=== PATIENT | male | born 1990 | race American Indian/Alaskan Native ===

== ENCOUNTER 2016-10-07 10:50 | Emergency (ER) | payer OTHER ==
--- NOTE | 2016-10-07 14:58 | Emergency Department Report ---
ED Eye Problem HPI - General Chief complaint: Eye Problems Stated complaint: RT EYE INFECTED/SWOLLEN Time Seen by Provider: 10/07/16 14:52 Source: patient Mode of arrival: Ambulatory Limitations: No Limitations - History of Present Illness chief complaint: eye pain - Related Data Allergies Allergy/AdvReac Type Severity Reaction Status Date / Time No Known Allergies Allergy Unverified 11/25/14 18:26 ED Review of Systems ROS: Stated complaint: RT EYE INFECTED/SWOLLEN Other details as noted in HPI ED Past Medical Hx - Past Medical History Previous Medical History?: No - Social History Smoking Status: Current Every Day Smoker ED Physical Exam - General Limitations: No Limitations ED Course Vital Signs 10/07/16 11:48 Temperature 98.3 F Pulse Rate 93 H Respiratory 18 Rate Blood Pressure 126/77 Blood Pressure 126/77 [Left] O2 Sat by Pulse 96 Oximetry Critical care attestation.: If time is entered above; I have spent that time in minutes in the direct care of this critically ill patient, excluding procedure time. ED Disposition Condition: Stable Referrals: PRIMARY CARE [Primary Care Provider] - 3-5 Days
[2016-10-07] MEDS ORDERED: BOOSTRIX IM ONE (15:12)
[2016-10-07] MEDS ORDERED: MORPHINE IV ONE (15:17)
[2016-10-07] MEDS ORDERED: ceFAZolin 2 GM in NACL 0.9% 100 ML IV ONE (16:00)
[2016-10-07 16:48] VITALS: BP 119/78
--- NOTE | 2016-10-07 16:51 | Cat Scan Report ---
FINAL REPORT PROCEDURE: CT orbits without contrast. TECHNIQUE: Computerized axial tomography of the orbits was performed without contrast material. HISTORY: Possible right globe rupture. COMPARISON: No prior studies are available for comparison. FINDINGS: Both orbits appear symmetrical. There are no soft tissue masses nor fluid collections. Both globes appear intact. There are no signs of a globe rupture. Both optic nerves appear normal in size. There is a small defect in the right lamina papyracea. There is some orbital fat that has herniated medially into the right anterior ethmoid air cells. This is consistent with either a medial wall blowout fracture, age unknown or congenital dehiscence. There is no intraorbital air to suggest that this might be an acute fracture. There is mild mucosal thickening in the left frontal sinus. The mastoid air cells are clear. The facial soft tissues are unremarkable as far as visualized. IMPRESSION: No evidence of a globe rupture. Right orbit medial wall defect as discussed above.
--- NOTE | 2016-10-07 17:11 | Emergency Department Report ---
Entered by SEBASTIÁN MENDEZ, acting as scribe for JOSHUA HURTADO PA. <JOSHUA HURTADO - Last Filed: 10/07/16 17:10> ED Eye Problem HPI - General Chief complaint: Eye Problems Stated complaint: RT EYE INFECTED/SWOLLEN Time Seen by Provider: 10/07/16 15:02 Source: patient Mode of arrival: Ambulatory Limitations: No Limitations - History of Present Illness Initial comments: 26 y/o male presents to the ED c/o right eye pain that began this morning. Associated symptoms include laceration to right eyelid, swelling and vision changes but he denies headache, nausea and vomiting. Pain is described as 5/10 on a severity scale. Patient states he was working with hammer and hit himself accidentally. No alleviating or aggravating factors. NKDA. HINOJOSA chief complaint: eye pain -: This morning Onset Description: sudden Location: right eye Place: home If Injury: occurred while hammering/ Eye Symptoms: pain Severity: moderate Severity scale (0 -10): 5 Consistency: constant Associated Symptoms: other (swelling, laceration, vision changes). denies: headache, nausea/vomiting Treatments Prior to Arrival: none - Related Data Allergies Allergy/AdvReac Type Severity Reaction Status Date / Time No Known Allergies Allergy Unverified 11/25/14 18:26 ED Review of Systems Comment: All other systems reviewed and negative Eyes: eye pain, vision change, other (swelling, laceration) Gastrointestinal: denies: nausea, vomiting Neurological: denies: headache ED Past Medical Hx - Past Medical History Previous Medical History?: No - Social History Smoking Status: Current Every Day Smoker ED Physical Exam - General Limitations: No Limitations General appearance: alert, in no apparent distress - Head Head exam: Present: atraumatic, normocephalic, normal inspection - Eye Eye exam: Present: periorbital tenderness Pupils: Present: unequal - ENT ENT exam: Present: normal exam, normal orophraynx, mucous membranes moist, TM's normal bilaterally, normal external ear exam - Neck Neck exam: Present: normal inspection, full ROM. Absent: tenderness, meningismus, lymphadenopathy, thyromegaly - Respiratory Respiratory exam: Present: normal lung sounds bilaterally. Absent: respiratory distress, wheezes, rales, rhonchi, stridor, chest wall tenderness, accessory muscle use, decreased breath sounds, prolonged expiratory - Cardiovascular Cardiovascular Exam: Present: regular rate, normal rhythm, normal heart sounds. Absent: bradycardia, tachycardia, irregular rhythm, systolic murmur, diastolic murmur, rubs, gallop - GI/Abdominal GI/Abdominal exam: Present: soft, normal bowel sounds. Absent: distended, tenderness, guarding, rebound, rigid, diminished bowel sounds - Extremities Exam Extremities exam: Present: normal inspection, full ROM, normal capillary refill. Absent: tenderness, pedal edema, joint swelling, calf tenderness - Back Exam Back exam: Present: normal inspection, full ROM. Absent: tenderness, CVA tenderness (R), CVA tenderness (L), muscle spasm, paraspinal tenderness, vertebral tenderness, rash noted - Neurological Exam Neurological exam: Present: alert, oriented X3 - Psychiatric Psychiatric exam: Present: normal affect, normal mood - Skin Skin exam: Present: warm, dry, intact, normal color. Absent: rash ED Course Vital Signs 10/07/16 10/07/16 10/07/16 11:48 15:23 16:47 Temperature 98.3 F Pulse Rate 93 H 76 Respiratory 18 18 20 Rate Blood Pressure 126/77 Blood Pressure 126/77 119/78 [Left] O2 Sat by Pulse 96 100 99 Oximetry ED Medical Decision Making - Medical Decision Making A/P: Concern for right globe rupture, eyelid laceration 1-case discussed with Dr. Mathis will also examine patient 2-I discussed case with trauma ED attending Dr. Goodman at [place], patient to be transferred for emergent ophthalmologic evaluation 3-nothing by mouth for now, CT orbit, Ancef 2 g IV, tetanus update 4-patient advised on clinical scenario agrees to transfer for emergent ophthalmology consultation and examination to mitigate any severe eye damage or blindness ED Disposition Clinical Impression: Ruptured globe of right eye Disposition: [id number] ANOTHER TYPE [facility]THCARE Is pt being admited?: No Does the pt Need Aspirin: No Condition: Stable Referrals: PRIMARY CARE,MD [Primary Care Provider] - 3-5 Days <JOAQUIM MATHIS - Last Filed: 10/08/16 16:23> ED Medical Decision Making - Medical Decision Making I have seen and examined this patient myself. I agree with the PA or REPORTING SPECIALIST plan as discussed. Clemente Mathis This documentation as recorded by the ANDREA lopez ELIZABETH,accurately reflects the service I personally performed and the decisions made by me,JOSHUA HURTADO PA.
== END 2016-10-07 17:00 | disposition other institution (70) ==
LOC: ED 10:50
DX: S05.31XA Ocular laceration without prolapse or loss of intraocular tissue, right eye, initial encounter (principal); F17.210 Nicotine dependence, cigarettes, uncomplicated; X58.XXXA Exposure to other specified factors, initial encounter; Y93.89 Activity, other specified; Y92.89 Other specified places as the place of occurrence of the external cause; Y99.8 Other external cause status
CPT/HCPCS: 70480; 90471; 90715; 96365; 96375; 99285; J0690; J2270